=== PATIENT | male | born 1975 | race African-American/Black ===

== ENCOUNTER → 2020-08-08 | Outpatient (CLI) | payer OTHER ==
[~2020-08-08] MED LIST: PREDNISONE 50 M50 MG PO; VOLTAREN TOP
== END ==
LOC: KOH-I 11:26
DX: S83.241A Other tear of medial meniscus, current injury, right knee, initial encounter (principal); S83.412A Sprain of medial collateral ligament of left knee, initial encounter; X50.1XXA Overexertion from prolonged static or awkward postures, initial encounter
CPT/HCPCS: 73721

== ENCOUNTER → 2021-05-17 | Outpatient (CLI) | payer OTHER | LOC: KOH-I 09:18 | DX: M79.671 Pain in right foot (principal); M25.571 Pain in right ankle and joints of right foot; M19.071 Primary osteoarthritis, right ankle and foot | CPT/HCPCS: 73610; 73630 ==

== ENCOUNTER → 2021-05-24 | Outpatient (CLI) | payer OTHER | LOC: KOH-I 10:13 | DX: M21.071 Valgus deformity, not elsewhere classified, right ankle (principal); M21.611 Bunion of right foot; R93.6 Abnormal findings on diagnostic imaging of limbs | CPT/HCPCS: 73700 ==

== ENCOUNTER → 2021-07-18 | Outpatient (CLI) | payer OTHER | LOC: US 07-16 15:30 | DX: R22.41 Localized swelling, mass and lump, right lower limb (principal) | CPT/HCPCS: 93971 ==

== ENCOUNTER → 2021-07-19 | Outpatient (CLI) | payer OTHER | LOC: EMI 12:20 | DX: M25.551 Pain in right hip (principal); S83.411A Sprain of medial collateral ligament of right knee, initial encounter; S92.151A Displaced avulsion fracture (chip fracture) of right talus, initial encounter for closed fracture; M19.071 Primary osteoarthritis, right ankle and foot; S93.491A Sprain of other ligament of right ankle, initial encounter | CPT/HCPCS: 73721 ==

== ENCOUNTER → 2021-07-31 | Outpatient (CLI) | payer OTHER ==
[2021-07-31 13:27] LABS: HEMOGLOBIN 15.8 gm/dl (14.0-17.5); RED BLOOD COUNT 5.73 M/UL (4.20-5.50)
[2021-07-31 13:45] LABS: BUN/CREATININE RATIO 7 (0-10)
== END ==
LOC: OPSV2 07-30 09:00
PROVIDERS: Podiatrist Foot & Ankle Surgery
DX: Z01.818 Encounter for other preprocedural examination (principal); M96.0 Pseudarthrosis after fusion or arthrodesis
CPT/HCPCS: 36415; 80048; 85027; 93005

== ENCOUNTER 2021-08-10 10:39 | Emergency (ER) | payer OTHER ==
[2021-08-10] MEDS ORDERED: IBUPROFEN600 MG PO (11:55)
== END 2021-08-10 12:53 | disposition home or self-care (01) ==
LOC: ER1 10:39
DX: M79.671 Pain in right foot (principal); F17.210 Nicotine dependence, cigarettes, uncomplicated
CPT/HCPCS: 99283

== ENCOUNTER → 2022-04-05 | Outpatient (CLI) | payer MEDICARE ==
[~2022-04-05] MED LIST changes: +IBUPROFEN600 MG PO
== END ==
LOC: KOH-I 14:30
DX: M25.571 Pain in right ankle and joints of right foot (principal); M25.471 Effusion, right ankle; M19.071 Primary osteoarthritis, right ankle and foot; M24.071 Loose body in right ankle
CPT/HCPCS: 73700